=== PATIENT | female | born 1940 | race Caucasian/White ===

== ENCOUNTER 2016-07-14 13:38 | Inpatient (IN) | payer MEDICARE ==
[~2016-07-14] VITALS: Ht 157.5 cm; Wt 71.2 kg
[2016-07-15] MEDS ORDERED: MAGN1TAB14 PO (12:37)
[2016-07-15] MEDS ORDERED: CENTTAB PO (12:37)
[2016-07-15] MEDS ORDERED: TURM450C PO (12:37)
[2016-07-15] MEDS ORDERED: UBIQ100C PO (12:37)
[2016-07-15] MEDS ORDERED: ASPI1TAB69 PO (12:37)
[2016-07-15] MEDS ORDERED: VITA400C2 PO (12:37)
[2016-07-15] MEDS ORDERED: OMEG100037 PO (12:37)
--- NOTE | 2016-07-26 10:49 | MH ---
cc: MAGDIEL HINTON DATE OF ADMISSION: 07/26/2016 ADMISSION DIAGNOSIS Avascular necrosis of the right hip. HISTORY OF PRESENT ILLNESS This patient is a 76-year-old female status post internal fixation of the right hip. The patient has evidence of avascular necrosis of the right hip with collapse and now reduction. The patient presents now for conversion to total hip replacement arthroplasty. PAST MEDICAL HISTORY, SOCIAL HISTORY, FAMILY HISTORY, REVIEW OF SYSTEMS See attached notes. PHYSICAL EXAMINATION General: Average build female in moderate distress with her right hip. HEENT: Normocephalic, atraumatic. Pupils equal, round, reactive to light and accommodation. Extraocular motions intact. Neck: Supple. Chest: Clear. Heart: Regular rate and rhythm. Abdomen: Soft, nontender with normoactive bowel sounds. Musculoskeletal: Examination shows of the right hip shows pain with range of motion. A well-healed lateral incision. Pain especially with internal and external rotation. Mild shortening right leg compared to the left. IMPRESSION 1. Status post internal fixation right hip. 2. Avascular necrosis right hip. PLAN Removal of internal fixation right hip and conversion to total hip replacement arthroplasty, posterior exposure. CONSENT There are risks with surgery including infection, bleeding, loss of motion, continued pain, need for further surgery, neurologic and vascular injury. The patient understands these issues and wishes to press on with the surgery as outlined above. INDICATION She is MD DINA Sanchez/SALVATORE /7:41 AM /10:43 AM
[2016-07-26 11:41] VITALS: BP 161/82; PULSE 75; RESP 18; TEMP 98.1; O2SAT 96
[2016-07-26] MEDS ORDERED: SODIUM CHLORIDE 0.9% IV SCH ×2 (12:00→17:29)
[2016-07-26] MEDS ORDERED: ceFAZolin 2 GM PREMIX 50 ML IV SCH (12:00)
[2016-07-26] MEDS ORDERED: SODIUM CHLORID 0.9% 500 ML IV SCH (12:00)
[2016-07-26] MEDS ORDERED: TRANEXAMIC ACID IV SCH ×2 (12:00→17:29)
[2016-07-26] MEDS ORDERED: VANCOMYCIN 1000 MG/NS 250 ML (for <70 kg) IV SCH ×2 (12:00)
[2016-07-26] MEDS ORDERED: POVIDONE IODINE 7.5% SCRUB 118 ML BOTTLE TOP SCH (12:00)
[2016-07-26] MEDS ORDERED: EXPAREL PERI-ARTICULAR INJECTION (TOTAL VOL. 60 ML) P-ARTICULR SCH ×2 (12:00)
[2016-07-26] MEDS ORDERED: INSULIN HUMAN REGULAR 1,000 UNITS/10 ML VIAL SQ PRN (12:00)
[2016-07-26] MEDS ORDERED: METOPROLOL TARTRATE 25 MG TAB PO PRN (12:00)
[2016-07-26] MEDS ORDERED: LACTATED RINGER'S 1000 ML IV SCH (12:00)
[2016-07-26] MEDS ORDERED: LACTATED RINGER'S 1000 ML INJ 2,000 ML IV ONE (12:28)
[2016-07-26] MEDS ORDERED: ONDANSETRON HCL 4 MG/2 ML VIAL IV PUSH ONE (12:28)
[2016-07-26] MEDS ORDERED: PROPOFOL 200 MG/20 ML AMP IV ONE (12:28)
[2016-07-26] MEDS ORDERED: ePHEDrine/NS 50 MG/5 ML SYR IV ONE (12:28)
[2016-07-26] MEDS ORDERED: SODIUM CHLOR 0.9% 250 ML INJ 250 ML IV ONE (12:28)
[2016-07-26] MEDS ORDERED: PHENYLEPH/NS 1000 MCG/10 ML SYR IV ONE (12:28)
[2016-07-26] MEDS ORDERED: GENTAMICIN SULFATE 80 MG/2 ML VIAL ONE (13:18)
[2016-07-26] MEDS ORDERED: HEPARIN SODIUM - SQ 10,000 UNITS/ML VIAL ONE (13:18)
[2016-07-26] MEDS ORDERED: GELFOAM SIZE 100 ONE (13:18)
[2016-07-26] MEDS ORDERED: THROMBIN (TOPICAL) 5,000 UNIT VIAL ONE (13:37)
--- NOTE | 2016-07-26 16:27 | PD.OP ---
cc: Elvin Medley MD Operative Report Date of Surgery: Jul 26, 2016 Preoperative Diagnosis: Osteoarthritis of the right hip, severe. Avascular necrosis right hip. Status post ORIF right hip with multiple screws, remote Postoperative Diagnosis: Same Procedure: Conversion of previous hip surgery to total hip replacement arthroplasty. Removal of multiple screws of the right hip Anesthesia: Gen. Surgeon: Elvin Medley Sanitation Laborer(s): FRANCHESCA Greene Operation and Findings: EBL: 300 cc INDICATION: This patient is a 76-year-old female approximately 20 years status post open treatment internal fixation of a right hip fracture with multiple screws. The patient has developed severe acetabular dysplasia. There is significant flattening of the femoral head which is highly suspicious for avascular necrosis. The patient has severe arthritis which would been treated for years. She now presents for surgical treatment. NOTE: Ct Greene PA-C was present for the entire surgical procedure as my first mate. In my medical opinion her skill and care was necessary for the proper management of this patient. COMPONENTS: COMPANY: [employer] CUP: Marshall, 52 mm, 100 series STEM: Size 6, high offset, Cobb, uncemented HEAD: 36, +1.5 06/22 taper PROCEDURE: This patient was brought to the operating room and anesthetized in the supine position and positioned on the routine table in the clean air suite. The patient was then rolled to a right t side up lateral position and held with a Biomet hip positioner. The hip and leg was scrubbed with alcohol followed by Hibiclens followed by chloro prep and draped sterilely. A timeout was done and antibiotics were given within a routine time window. A 4 inch incision was made starting along the posterior one third of the greater trochanter. The iliotibial band was opened in line with the incision. The Charnley retractors were positioned. The posterior capsule and external rotators were taken down together in a sleeve. The sciatic nerve was palpated to be free of any obstruction or compression and posterior to the hip joint without any evidence of traction from the retractor. Multiple distal screws were found. There were dissected from the surrounding tissue. They were removed in a retrograde fashion without difficulty. The head and neck was exposed. The head was removed. The neck was cut at the right location. The acetabulum was inspected. Deep retractors were positioned. The acetabulum was deepened down to the floor and started with a proper size reamer and reaming up to 51 mm. This was trialed with the same size trial. Overall fit was satisfactory. The proper cup was placed in approximately 40 of abduction and 30 of forward flexion. The final liner was positioned. Retractors were positioned allowing good visualization of the proximal femur. A box osteotome was utilized followed by progressive broaching for the Cobb stem. This was reamed and broached and eventually advanced to a size [] stem. A trial reduction showed satisfactory stability. Offset was satisfactory. Leg length was reestablished. At 90 of flexion it was stable to 50 of internal rotation. The hip could not be subluxed anteriorly. The canal was irrigated copiously. Hemostasis was controlled. The final stem was inserted in approximately 20 of anteversion. The final head was impacted. The hip was reduced and stability, offset and leg length was as previously noted. The posterior capsule and external rotators were repaired through bone with interrupted #2 Tycron sutures. The piriformis muscle was repaired with the same. The iliotibial band with interrupted #1 Vicryl sutures. Subcutaneous tissue was approximated with 2-0 Vicryl suture and skin with running intradermal 3-0 Vicryl followed by Steri-Strips and benzoin. A sterile dressing was applied.. The sponge count needle counts and instrument counts were all correct. The patient was awakened and taken to the recovery room in satisfactory condition FINDINGS: There was evidence of severe arthritis with acetabular dysplasia. There was suggestion of avascular necrosis with a very soft area of the cephalad portion of the femoral head. No complication was appreciated. Elvin Medley MD Jul 26, 2016 16:27
[2016-07-26] MEDS ORDERED: SODIUM CHLORIDE 0.9% FLUSH 5 ML FLUSH IVF PRN (16:30)
[2016-07-26] MEDS ORDERED: TEMAZEPAM 15 MG CAP PO PRN (16:30)
[2016-07-26] MEDS ORDERED: ACETAMINOPHEN/HYDROcodone 325 MG/5 MG TAB PO PRN ×2 (16:30)
[2016-07-26] MEDS ORDERED: Post-op Orders (for Pharmacy) MISC XX ONE (16:30)
[2016-07-26] MEDS ORDERED: ONDANSETRON HCL 4 MG/2 ML VIAL IVP PRN (16:30)
[2016-07-26] MEDS ORDERED: MORPHINE SULFATE 8 MG/ML INJ IM PRN (16:30)
[2016-07-26] MEDS ORDERED: NALOXONE HCL 0.4 MG/ML AMP IV PRN (16:30)
[2016-07-26] MEDS ORDERED: MORPHINE SULFATE 30 MG/30 ML PCA IV SCH (16:30)
[2016-07-26] MEDS ORDERED: ALUMINUM/MAGNESIUM/SIMETH 30 ML CUP PO PRN (16:30)
[2016-07-26] MEDS ORDERED: MAGNESIUM HYDROXIDE SUSP 30 ML CUP PO PRN (16:30)
[2016-07-26] MEDS ORDERED: BISACODYL 10 MG SUPP PR PRN (16:30)
[2016-07-26] MEDS ORDERED: XARE10TA PO (16:57)
[2016-07-26] MEDS ORDERED: HYDR-3516 PO (16:57)
[2016-07-26] MEDS: LACTATED RINGER'S 1000 ML INJ 1,000 ML IV SCH (17:00)
[2016-07-26] MEDS ORDERED: *MEPERIDINE 25 MG INJ VIAL PERIprocedural Use ONLY ONE (17:20)
[2016-07-26] MEDS ORDERED: DO NOT ADM ANY ANTICOAGULANT DRUGS XX PRN (17:30)
--- NOTE | 2016-07-26 18:11 | RADRPT ---
EXAM DATE/TIME: 07/26/2016 17:05 [facility] COMPARISON: No previous studies available for comparison. INDICATIONS : Right hip replacement. MEDICAL HISTORY : None. SURGICAL HISTORY : Previous hardware placement. ENCOUNTER: Initial ACUITY: 1 day PAIN SCORE: Non-responsive. LOCATION: Right hip. FINDINGS: The patient is status post a total hip arthroplasty with a bipolar prosthesis. Prosthesis is well-sea kari. Alignment is anatomic. A fracture is not appreciated. CONCLUSION: Anatomic alignment. Joe Orr MD FACR Board Certified Radiologist. This report was verified electronically.
[2016-07-26 20:07] VITALS: BP 145/65; PULSE 88; RESP 17; TEMP 97.4; O2SAT 98
[2016-07-26] MEDS: SODIUM CHLORIDE 0.9% FLUSH 5 ML FLUSH IVF SCH (21:00)
[2016-07-26] MEDS: PCA - TOTAL MG MORPHINE DELIVERED PER SHIFT SCH (22:00)
[2016-07-26 23:20] VITALS: BP 108/64; PULSE 82; RESP 17; TEMP 98.1; O2SAT 97
[2016-07-27] VITALS (7 sets, daily range): BP systolic 102–126; BP diastolic 58–65; PULSE 89–103; RESP 16–17; TEMP 98.2–99.9; O2SAT 94–97
[2016-07-27] MEDS: LACTATED RINGER'S 1000 ML INJ 1,000 ML IV SCH ×2 (04:35→18:00)
[2016-07-27] MEDS: PCA - TOTAL MG MORPHINE DELIVERED PER SHIFT SCH (05:42)
[2016-07-27 06:49] LABS: HEMATOCRIT 28.5 % (35.0-46.0); REVIEW FLAG FINAL
[2016-07-27] MEDS: SODIUM CHLORIDE 0.9% FLUSH 5 ML FLUSH IVF SCH ×2 (09:00→21:00)
[2016-07-27] MEDS ORDERED: MISC-163 (12:31)
[2016-07-27] MEDS ORDERED: WALKER WHEELS/F1 MIS (12:32)
--- NOTE | 2016-07-27 13:18 | PD.ORT.PN ---
Subjective Subjective Remarks Doing well with right hip. Moderate pain but not using PORTABLE IRRIGATION OPERATOR. No complaints otherwise. Tolerating liquids. No CP or SOB. Objective Vitals Vital Signs Date Time Temp Pulse Resp B/P Pulse Ox O2 Delivery O2 Flow Rate FiO2 07/27/16 08:00 99.9 89 16 126/65 96 07/27/16 04:07 98.2 94 16 124/60 97 07/26/16 23:20 98.1 82 17 108/64 97 07/26/16 22:00 16 07/26/16 20:07 97.4 88 17 145/65 98 07/26/16 20:00 97.6 71 14 113/58 98 07/26/16 19:00 73 13 101/39 98 07/26/16 18:45 73 10 93/44 99 07/26/16 18:30 64 12 92/54 99 07/26/16 18:15 78 12 92/55 99 07/26/16 18:00 45 12 83/47 99 07/26/16 17:45 80 14 113/63 96 07/26/16 17:44 12 07/26/16 17:30 85 12 113/65 99 07/26/16 17:15 92 12 97/70 99 Nasal Cannula 2 07/26/16 17:09 97.4 106 10 95/67 98 Nasal Cannula 3 I/O 07/26/16 07/26/16 07/26/16 07/27/16 07/27/16 07/27/16 07:00 15:00 23:00 07:00 15:00 23:00 Intake Total 3538 ml 639 ml Output Total 1575 ml 250 ml Balance 1963 ml 389 ml Intake Oral 600 ml IV Total 538 ml 639 ml Other 2400 ml Output Urine Total 600 ml 250 ml Estimated Blood Loss 300 ml Other 675 ml # Bowel Movements 0 Result Diagram: 07/27/16 0600 Imaging Last 24 hours Impressions Hip X-Ray 07/26/16 1618 Signed Impressions: Service Date/Time: Tuesday, July 26, 2016 17:05 - CONCLUSION: Anatomic alignment. Joe Orr MD Objective Remarks Laying in bed, at bedside No acute distress VSS RLE Dressing hip c/d/i, no drainage, mild swelling, thigh and calf both supple, neg homans +motor at, +sens, +nvi Assessment & Plan Ortho Post Op Day #: 1 Problem List: Assessment and Plan pod#1 s/p R Conv to CÉSAR, posterior D/C PORTABLE IRRIGATION OPERATOR - change to po pain meds. Hold dressing changes unless saturated. PT - WBAT LLE. Anterior césar precautions. Xarelto 10mg qd. D/C planning, home w [facility] tomorrow vs monday. F2F written. Elizabeth Wiseman Jul 27, 2016 13:18
--- NOTE | 2016-07-27 13:19 | HHI.FF ---
Face to Face Verification Diagnosis: (1) Right hip pain (2) Mechanical complic of internal orthopedic device, implant or graft (3) Avascular necrosis of bone of right hip Physical Therapy Gait training, Safety evaluation, Transfer training, bed to chair Hip: Total hip, Protocol: Right, Abduction pillow while in bed Right LE Weight Bearing: WB as tolerated Additional Instructions PT 5 days/wk for 2 weeks. Posterior CÉSAR precautions. WBAT RLE. Front wheeled walker to assist w gait. Nursing RN Days per Week: 2 x Week(s): 1 Dressing Changes: Do not change dressing Additional Instructions Vitals assessment, dressing assesssment - do not change unless saturated. Ok to shower pod#5 if kept sealed and dry. I have seen patient Erika Wing on 07/27/16. My clinical findings support the need for the requested home health care services because: Limited ability to care for self High risk of falls I certify that my clinical findings support that this patient is homebound because: Post-op weakness Unsteady gait/balance Elizabeth Wiseman Jul 27, 2016 13:19
[2016-07-27] MEDS ORDERED: RIVAROXABAN 10 MG TAB PO SCH (16:03)
[2016-07-27] MEDS: DOCUSATE SODIUM 100 MG CAP PO SCH (21:24)
[2016-07-28] VITALS: BP 110/53; PULSE 100; RESP 17; TEMP 100.2; O2SAT 94
[2016-07-28 04:51] VITALS: TEMP 98.9
[2016-07-28] MEDS: LACTATED RINGER'S 1000 ML INJ 1,000 ML IV SCH (04:56)
[2016-07-28 05:19] LABS: REVIEW FLAG FINAL
[2016-07-28 08:00] VITALS: BP 111/66; PULSE 105; RESP 18; TEMP 99.2; O2SAT 94
[2016-07-28] MEDS: DOCUSATE SODIUM 100 MG CAP PO SCH (09:00)
--- NOTE | 2016-07-28 09:25 | PD.ORT.PN ---
Subjective Subjective Remarks She is improving. Feeling much better today. No lightheadedness. Pain controlled right hip when taking medicine. No nee radiating leg pain. Urinating well. Tolerating liquids. No CP or SOB. Objective Vitals Vital Signs Date Time Temp Pulse Resp B/P Pulse Ox O2 Delivery O2 Flow Rate FiO2 07/28/16 08:00 99.2 105 18 111/66 94 07/28/16 04:51 98.9 07/28/16 00:00 100.2 100 17 110/53 94 07/27/16 20:00 98.8 103 17 117/58 94 07/27/16 18:52 96 21 07/27/16 16:00 98.9 101 16 102/62 96 07/27/16 12:54 95 21 07/27/16 12:00 99.3 98 16 111/64 97 I/O 07/27/16 07/27/16 07/27/16 07/28/16 07/28/16 07/28/16 07:00 15:00 23:00 07:00 15:00 23:00 Intake Total 639 ml 960 ml 460 ml 240 ml Output Total 250 ml 200 ml Balance 389 ml 960 ml 260 ml 240 ml Intake Oral 960 ml 460 ml 240 ml IV Total 639 ml Output Urine Total 250 ml 200 ml # Voids 2 1 1 # Bowel Movements 0 0 Result Diagram: 07/28/16 0450 Imaging Last 24 hours Impressions Hip X-Ray 07/26/16 1618 Signed Impressions: Service Date/Time: Tuesday, July 26, 2016 17:05 - CONCLUSION: Anatomic alignment. Joe Orr MD Objective Remarks Sitting up in bed, at bedside No acute distress VSS RLE Dressing hip c/d/i, no drainage, mild swelling, thigh and calf both supple, neg homans +motor at, +sens, +nvi Assessment & Plan Ortho Post Op Day #: 2 Problem List: Assessment and Plan pod#2 s/p R Conv to CÉSAR, posterior Doing better today. No lightheadedness. Hg 8.8 - vitals stable. No need for transfusion at this time. PO pain meds. Hold dressing changes unless saturated. PT - WBAT LLE. Anterior césar precautions. Xarelto 10mg qd. If she does well w PT today, ok to d/c home today w [facility]. F/U in 2 weeks as scheduled. F2F written. Elizabeth Wiseman Jul 28, 2016 09:25
--- NOTE | 2016-07-28 09:26 | HHI.DCPOC ---
Discharge Care Plan Diagnosis: (1) Right hip pain (2) Mechanical complic of internal orthopedic device, implant or graft (3) Avascular necrosis of bone of right hip Your Health Problems Are: Incision/Drains Goals to Promote Your Health * To prevent worsening of your condition and complications * To maintain your health at the optimal level Directions to Meet Your Goals Take your medications as prescribed Follow your dietary instruction Follow activity as directed Keep your appointments as scheduled Take your immunizations and boosters as scheduled If your symptoms worsen call your PCP, if no PCP go to Urgent Care Center or Emergency Room Smoking is Dangerous to Your Health. Avoid second hand smoke Call the 24-hour hour crisis hotline for domestic abuse at Elizabeth Wiseman Jul 28, 2016 09:26
--- NOTE | 2016-07-28 09:30 | HHI.DS ---
Discharge Summary Admission Date Jul 26, 2016 at 10:45 Discharge Date: Jul 28, 2016 Admitting Diagnosis see below Diagnosis: (1) Right hip pain Diagnosis: Principal (2) Mechanical complic of internal orthopedic device, implant or graft Diagnosis: Principal (3) Avascular necrosis of bone of right hip Diagnosis: Principal Procedures Conversion perc screws to right total hip arthroplasty, posterior approach Brief History This is a 76 year old female patient with a previous right hip fracture treated with percutaneous screws. Over time she developed pain in the right hip. Imaging studies were performed and she was found to have avascular necrosis of the right hip. Conservative measures were pursued but she continued to decline. Conversion surgery to total hip arthroplasty was recommended and she elected to move forward. CBC/BMP: 07/28/16 0450 Significant Findings Laboratory Tests Test 07/27/16 07/28/16 06:00 04:50 Hemoglobin 9.5 GM/DL 8.8 GM/DL (11.6-15.3) (11.6-15.3) Hematocrit 28.5 % 26.0 % (35.0-46.0) (35.0-46.0) PE at Discharge Sitting up in bed, at bedside No acute distress VSS RLE Dressing hip c/d/i, no drainage, mild swelling, thigh and calf both supple, neg homans +motor at, +sens, +nvi Hospital Course Surgical treatment was performed on the day of admission without complication. She recovered well in PACU and was transferred to the orthopaedic floor. Pain was controlled with IV and oral medications. DVT prophylaxis was initiated pod# 1. She has a mild vaso-vagal episode day one but recovered well. She was compliant with physical therapy and all posterior total hip precautions. After 2 days she was found to be stable and discharged home with home health care and instructed to pursue a high fiber diet and to continue therapy. Pt Condition on Discharge: Stable Discharge Disposition: Disch w/ Home Health Serv Discharge Instructions Diet Instructions: As Tolerated, No Restrictions, High Fiber Diet Activities You Can Perform: Weight Bearing as [place] Activities to Avoid: Strenuous Activity New Medications: 3-in-1 Bedside Toilet (3-in-1 Bedside Toilet) 1 Mis Mis 1 EA .ROUTE DIRECTED #1 EA Walker with Front Wheels (Walker with Front Wheels) 1 Mis Mis 1 EA .ROUTE DIRECTED #1 Ref 0 EA Hydrocodone-Acetaminophen (Hydrocodone-Acetaminophen) 5-325 mg Tab 1 TAB PO Q4H PRN PAIN LESS THAN 5 ON SCALE #50 TAB Rivaroxaban (Xarelto) 10 Mg Tab 10 MG PO Q24H Prevent Blood Clot #25 TAB Continued Medications: Aspirin (Aspirin) 81 Mg Tabdr 81 MG PO DAILY TAB Magnesium (Magnesium) 400 Mg Tab 400 MG PO DAILY Nutritional Supplement Ref 0 TAB Multiple Vitamins W/ Minerals (Centrum Silver) 1 Tab 1 TAB PO DAILY Nutritional Supplement Ref 0 TAB [place]-3 Fatty Acids (Fish Oil 1000 mg) 1 Cap Cap 1000 MG PO DAILY Turmeric (Curcuma Longa) (Turmeric) 450 Mg Cap 450 MG PO DAILY Ubiquinol (Ubiquinol) 100 Mg Cap 100 MG PO DAILY Vitamin E (Vitamin E) 400 Unit Cap 400 UNITS PO DAILY Nutritional Supplement Ref 0 CAP Elizabeth Wiesman Jul 28, 2016 09:30
[2016-07-28] MEDS: SODIUM CHLORIDE 0.9% FLUSH 5 ML FLUSH IVF SCH (10:02)
== END 2016-07-28 10:39 | disposition home health service (06) | DRG 470 ==
LOC: HSDI 07-26 10:45 → N06B 07-26 20:17
PROVIDERS: ADMIT Orthopaedic Surgery Orthopaedic Surgery of the Spine; ATTEND Orthopaedic Surgery Orthopaedic Surgery of the Spine
PROC: 0QP604Z Removal of Internal Fixation Device from Right Upper Femur, Open Approach (ICD-10-PCS; 2016-07-26)
PROC: 0SR902A Replacement of Right Hip Joint with Metal on Polyethylene Synthetic Substitute, Uncemented, Open Approach (ICD-10-PCS; principal; 2016-07-26 14:02)
DX: M87.851 Other osteonecrosis, right femur (principal); R55 Syncope and collapse; M16.11 Unilateral primary osteoarthritis, right hip; M25.551 Pain in right hip; Q65.89 Other specified congenital deformities of hip; S72.001S Fracture of unspecified part of neck of right femur, sequela; X58.XXXS Exposure to other specified factors, sequela
CPT/HCPCS: 73501; 85014; 85018; 86850; 86900; 86901; 86920; 94150; C1776; C9290; J0690; J1580; J1644; J2175; J2270; J2370; J2405; J3370; J7050; J7120

== ENCOUNTER → 2016-07-15 | Outpatient (CLI) | payer MEDICARE ==
[~2016-07-15] MED LIST: ASPI1TAB69 PO; ASPI81TA82 PO; CENTTAB PO; FISH1000 PO; HYDR-3516 PO; MAGN1TAB14 PO; MAGN400T PO; MISC-163; OMEG100037 PO; TAB-TAB PO; TURM450C PO; UBIQ100C PO; VITA400C2 PO; VITA400C70 PO; WALKER WHEELS/F1 MIS; XARE10TA PO
[2016-07-15 11:51] LABS: AUTOMATED NEUTROPHIL # 3.2 TH/MM3 (1.8-7.7); BASOPHIL % 0.7 % (0.0-2.0); EOSINOPHIL # 0.2 TH/MM3 (0-0.4); EOSINOPHIL % 2.8 % (0.0-4.0); HEMATOCRIT 41.1 % (35.0-46.0); HEMO FLAGS DIFF FINAL; LYMPHOCYTE # 1.7 TH/MM3 (1.0-4.8); MEAN CELL VOLUME 86.9 FL (80.0-100.0); MEAN CORPUSCULAR HEMOGLOBIN 28.7 PG (27.0-34.0); MONO % 7.9 % (0.0-8.0); NEUT % 57.6 % (16.0-70.0); PLATELET COUNT 223 TH/MM3 (150-450); RED BLOOD COUNT 4.73 MIL/MM3 (4.00-5.30); RED CELL DISTRIBUTION WIDTH 14.6 % (11.6-17.2); WHITE BLOOD COUNT 5.5 TH/MM3 (4.0-11.0)
[2016-07-15 12:02] LABS: APTT (PATIENT) 24.7 SEC (24.3-30.1); PROTHROMBIN TIME - PATIENT 11.1 SEC (9.8-11.6)
[2016-07-15 12:19] LABS: BICARBONATE 29.9 MEQ/L (21.0-32.0); POTASSIUM 4.4 MEQ/L (3.5-5.1)
[2016-07-15 13:03] LABS: BLOOD, URINE NEG (NEG); CULTURE IF INDICATED CULT NOT INDICATED; GLUCOSE,URINE NEG (NEG); KETONE, URINE NEG (NEG); MUCUS URINE FEW /lpf (OCC); NITRITE,URINE NEG (NEG); PH, URINE 5.5 (5.0-8.5); SQUAMOUS EPITHELIAL CELL URINE <1 /hpf (0-5); URINE COLOR YELLOW (YELLW/STRAW)
[2016-07-15 13:06] LABS: COMMENT (UR) CULT NOT INDICATED
--- NOTE | 2016-07-15 15:30 | EKG ---
Date Performed: 07/15/2016 Time Performed: 11:41:51 PTAGE: 76 years EKG: Sinus rhythm BORDERLINE LEFT AXIS DEVIATION VOLTAGE CRITERIA FOR LVH NONSPECIFIC ST-T WAVE CHANGES/ LIKELY NO SIG NIFICANT CHANGE. ABNORMAL ECG PREVIOUS TRACING : 09/21/1997 12.03 DOCTOR: Heavenly Herzog Interpretating Date/Time 07/15/2016 15:29:07
== END ==
LOC: CPRE 11:16
PROVIDERS: ATTEND Orthopaedic Surgery Orthopaedic Surgery of the Spine
DX: Z01.810 Encounter for preprocedural cardiovascular examination (principal); Z01.812 Encounter for preprocedural laboratory examination; M87.859 Other osteonecrosis, unspecified femur; M16.11 Unilateral primary osteoarthritis, right hip; R94.31 Abnormal electrocardiogram [ECG] [EKG]; Z79.01 Long term (current) use of anticoagulants
CPT/HCPCS: 36415; 80048; 81001; 85025; 85610; 85730; 93005